=== PATIENT | female | born 1990 | race Caucasian/White ===

== ENCOUNTER 2021-02-27 09:57 | Outpatient (CLI) | payer BC, SELFPAY ==
--- NOTE | 2021-02-27 10:08 | ECG_ITS ---
Measurements Intervals [place] Rate: 70 P: 48 AL: 140 QRS: 72 QRSD: 86 T: 18 QT: 383 QTc: 416 Interpretive Statements SINUS RHYTHM NORMAL ECG Electronically Signed On 02-27-2021 10:25:03 CDT by Jeet Page D.O.
== END 2021-02-27 09:58 | disposition home or self-care (01) ==
PROVIDERS: Visit Provider Student in an Organized Health Care Education/Training Program
DX: R00.2 Palpitations (principal); Z34.82 Encounter for supervision of other normal pregnancy, second trimester; Z3A.00 Weeks of gestation of pregnancy not specified
CPT/HCPCS: 93005

== ENCOUNTER 2021-04-29 15:57 | Outpatient (CLI) | payer BC, SELFPAY ==
[2021-04-29 17:49] LABS: Basophils Percent Auto 0.3 % (0.2-1.2); Eosinophils Absolute Auto 0.1 K/mm3 (0-0.3); Eosinophils Percent Auto 0.7 % (0-4.4); Hemoglobin 10.2 g/dL (12.0-15.0); Immature Granulocyte Absolute 0.09 K/mm3 (0.00-0.031); Immature Granulocyte Percent A 0.8 % (0-0.5); Lymphocytes Absolute Auto 2.19 K/mm3 (0.9-3.2); Lymphocytes Percent Auto 18.6 % (18.3-44.2); Mean Corpuscular HGB Conc 32.9 g/dl (32-36); Mean Corpuscular Hemoglobin 28.6 pg (26-34); Mean Corpuscular Volume 86.8 fl (80-100); Mean Platelet Volume 9.3 fl (7.4-10.4); Monocytes Absolute Auto 0.6 K/mm3 (0.1-0.6); Monocytes Percent Auto 5.4 % (2.6-8.5); Neutrophils Absolute Auto 8.8 K/mm3 (1.3-6.7); Neutrophils Percent Auto 74.2 % (45.5-73.1); Platelet Count Result 333 k/mm3 (150-375); Red Blood Count 3.57 M/mm3 (4.2-5.4); Red Cell Distribution Width 13.2 % (11.5-14.5); White Blood Count 11.8 K/mm3 (4.5-10.0)
[2021-04-29 18:24] LABS: Glucose 1 Hour PP 50gm Dose 87 mg/dL
== END 2021-04-29 15:58 | disposition home or self-care (01) ==
LOC: ANHLAB 15:59
PROVIDERS: Visit Provider Student in an Organized Health Care Education/Training Program
DX: Z34.90 Encounter for supervision of normal pregnancy, unspecified, unspecified trimester (principal); Z3A.00 Weeks of gestation of pregnancy not specified
CPT/HCPCS: 36415; 82947; 85025

== ENCOUNTER 2021-06-03 14:18 | Outpatient (CLI) | payer BC, SELFPAY ==
[2021-06-03 15:01] LABS: Basophils Absolute Auto 0.1 K/mm3 (0.0-0.1); Basophils Percent Auto 0.4 % (0.2-1.2); Eosinophils Absolute Auto 0.1 K/mm3 (0-0.3); Eosinophils Percent Auto 0.7 % (0-4.4); Hematocrit 32.8 % (37.0-47.0); Hemoglobin 10.8 g/dL (12.0-15.0); Immature Granulocyte Absolute 0.27 K/mm3 (0.00-0.031); Lymphocytes Absolute Auto 2.66 K/mm3 (0.9-3.2); Lymphocytes Percent Auto 19.3 % (18.3-44.2); Mean Corpuscular HGB Conc 32.9 g/dl (32-36); Mean Corpuscular Hemoglobin 28.3 pg (26-34); Mean Corpuscular Volume 86.1 fl (80-100); Mean Platelet Volume 9.7 fl (7.4-10.4); Monocytes Absolute Auto 0.8 K/mm3 (0.1-0.6); Monocytes Percent Auto 5.9 % (2.6-8.5); Neutrophils Absolute Auto 9.9 K/mm3 (1.3-6.7); Neutrophils Percent Auto 71.7 % (45.5-73.1); Platelet Count Result 339 k/mm3 (150-375); Red Blood Count 3.81 M/mm3 (4.2-5.4); Red Cell Distribution Width 14.6 % (11.5-14.5); White Blood Count 13.8 K/mm3 (4.5-10.0)
[2021-06-03 15:55] LABS: HIV 1/2 Ab P24 Ag Result Negative (Negative)
[2021-06-03 16:50] LABS: Rapid Plasma Reagin Non-Reactive (NonReactive)
== END 2021-06-03 14:19 | disposition home or self-care (01) ==
PROVIDERS: Visit Provider Student in an Organized Health Care Education/Training Program
DX: Z34.83 Encounter for supervision of other normal pregnancy, third trimester (principal); Z3A.00 Weeks of gestation of pregnancy not specified
CPT/HCPCS: 36415; 85025; 86592; 86703; G0432

== ENCOUNTER 2021-06-30 10:05 | Outpatient (RCR) | payer BC, SELFPAY ==
[2021-06-19 14:25] VITALS: BP 112/72; PULSE 85
--- NOTE | ~2021-06-30 | US_ITS ---
EXAMINATION: US OB limited EXAM DATE: 06/30/2021 11:29 INDICATION: Variable decelerations/MATT. 3rd trimester. TECHNIQUE: Pelvic obstetrical transabdominal sonogram was performed by a technologist. There are mu ltiple grayscale and Doppler images available for interpretation. There are no earlier studies of th is gestation for comparison. FINDINGS: There is a single fetus identified in vertex presentation with a heart rate of 145 beats pe r minute. The placenta is located in the fundal position. There is no sonographic evidence of retrop lacental hemorrhage identified. The amniotic fluid index is 13.2 centimeters, which is normal. IMPRESSION: 1. Single fetus in vertex presentation with heart rate 145 beats per minute. 2. Normal MATT 13.2 cm. Reviewed, dictated and finalized at location B. AT [facility] A DRIVER
[2021-06-30 11:30] VITALS: BP 117/65; PULSE 94
== END 2021-09-08 09:02 | disposition home or self-care (01) ==
LOC: ANHOBOP 10:05
PROVIDERS: Visit Provider Student in an Organized Health Care Education/Training Program
DX: O36.8330 Maternal care for abnormalities of the fetal heart rate or rhythm, third trimester, not applicable or unspecified (principal); Z3A.37 37 weeks gestation of pregnancy; Z3A.39 39 weeks gestation of pregnancy
CPT/HCPCS: 59025; 76815

== ENCOUNTER 2021-07-03 10:35 | Inpatient (IN) | payer BC, SELFPAY ==
[2021-07-03] VITALS (87 sets, daily range): BP systolic 83–130; BP diastolic 34–91; PULSE 73–149; RESP 16; TEMP 36.6–37; O2SAT 93–100; BMI 32.0
[2021-07-03] MEDS: AMPICILLIN 2 GM/NS 100 ML 2 GM/100 ML BAG IVPB (11:44)
[2021-07-03] MEDS: LACTATED RINGERS 1,000 ML 125 ML IV CONT (11:44)
[2021-07-03 11:45] LABS: Basophils Percent Auto 0.2 % (0.2-1.2); Eosinophils Absolute Auto 0.2 K/mm3 (0-0.3); Eosinophils Percent Auto 1.1 % (0-4.4); Hematocrit 31.1 % (37.0-47.0); Hemoglobin 10.2 g/dL (12.0-15.0); Immature Granulocyte Absolute 0.19 K/mm3 (0.00-0.031); Immature Granulocyte Percent A 1.4 % (0-0.5); Lymphocytes Percent Auto 20.8 % (18.3-44.2); Mean Corpuscular HGB Conc 32.8 g/dl (32-36); Mean Corpuscular Hemoglobin 27.9 pg (26-34); Mean Platelet Volume 9.8 fl (7.4-10.4); Monocytes Absolute Auto 0.8 K/mm3 (0.1-0.6); Monocytes Percent Auto 5.5 % (2.6-8.5); Neutrophils Absolute Auto 9.9 K/mm3 (1.3-6.7); Platelet Count Result 341 k/mm3 (150-375); Red Blood Count 3.66 M/mm3 (4.2-5.4); Red Cell Distribution Width 14.7 % (11.5-14.5); White Blood Count 13.9 K/mm3 (4.5-10.0)
[2021-07-03 13:26] LABS: Rubella IgG Antibody 27.2 IU/ML
--- NOTE | 2021-07-03 14:11 | WPDANESEPP ---
Anes - Eval Pre Procedure Procedure: labor epidural Date/Time: 07/03/21 14:11 Surgeon: jamilah Preop Diagnosis: pain during labor Pre Op Diagnosis: iol Patient Data Age: 30 Gender: F Height: 1.68 m Weight: 90 kg Last Vital Signs Pulse 89 07/03/21 12:01 BP 109/73 07/03/21 12:01 Allergies Allergy/AdvReac Type Severity Reaction Status Date / Time No Known Allergies Allergy Verified 07/03/21 10:04 Home Medications Medication Instructions Recorded Confirmed Type ferrous sulfate 325 mg (65 mg 325 mg PO DAILY #90 tablet 05/01/21 07/03/21 Rx iron) tablet PNV cmb#95-ferrous fumarate-FA 1 tablet PO DAILY 07/03/21 07/03/21 History [] Laboratory Tests 07/03/21 07/03/21 07/03/21 11:36 11:36 11:36 WBC 13.9 K/mm3 H K/mm3 (4.5-10.0) RBC 3.66 M/mm3 L M/mm3 (4.2-5.4) Hgb 10.2 g/dL L g/dL (12.0-15.0) Hct 31.1 % L % (37.0-47.0) MCV 85.0 fl fl (80-100) MCH 27.9 pg pg (26-34) MCHC 32.8 g/dl g/dl (32-36) RDW 14.7 % H % (11.5-14.5) Plt Count 341 k/mm3 k/mm3 (150-375) MPV 9.8 fl fl (7.4-10.4) Immature Gran % (Auto) 1.4 % H % (0-0.5) Neut % (Auto) 71.0 % % (45.5-73.1) Lymph % (Auto) 20.8 % % (18.3-44.2) [place] % (Auto) 5.5 % % (2.6-8.5) Eos % (Auto) 1.1 % % (0-4.4) Baso % (Auto) 0.2 % % (0.2-1.2) Lymph # (Auto) 2.90 K/mm3 K/mm3 (0.9-3.2) [place] # (Auto) 0.8 K/mm3 H K/mm3 (0.1-0.6) Eos # (Auto) 0.2 K/mm3 K/mm3 (0-0.3) Baso # (Auto) 0.0 K/mm3 K/mm3 (0.0-0.1) Abs Immat Gran (auto) 0.19 K/mm3 H K/mm3 (0.00-0.031) Absolute Neuts (auto) 9.9 K/mm3 H K/mm3 (1.3-6.7) Absolute Nucleated RBC 0.0 K/mm3 K/mm3 (0.0-0.012) Nucleated RBC % 0.0 % % (0.0-0.2) RPR Pending Rubella IgG Antibody Blood Type A Positive Antibody Screen Negative 07/03/21 11:36 WBC RBC Hgb Hct MCV MCH MCHC RDW Plt Count MPV Immature Gran % (Auto) Neut % (Auto) Lymph % (Auto) [place] % (Auto) Eos % (Auto) Baso % (Auto) Lymph # (Auto) [place] # (Auto) Eos # (Auto) Baso # (Auto) Abs Immat Gran (auto) Absolute Neuts (auto) Absolute Nucleated RBC Nucleated RBC % RPR Rubella IgG Antibody 27.2 IU/ML IU/ML (10 - ) Blood Type Antibody Screen Patient hx anesthesia problems: none Family hx anesthesia problems: none Results Review: All pre-operative results and documents have been reviewed as part of the pre-operative evaluation. [facility] Past Medical History Medical History Heart palpitations Missed x1 Mitral valve prolapse Vaginal delivery x 3 Social History Social History Smoking status: Never smoker Second hand tobacco smoke exposure: No Alcohol intake: never Substance use: never Spiritual care concerns: No Exam Day of Procedure 07/03/21 14:11
[2021-07-03] MEDS: AMPICILLIN 1 GM/NS 50 ML 1 GM/50 ML BAG IVPB (15:48)
--- NOTE | 2021-07-03 16:42 | PM.IMHP ---
H&P: HPI History of Present Illness Date/Time: 07/03/21 16:42 Patient is a . LMP 09/27/20. She is currently 39w6d with MARY 07/04/21 dated by LMP consistent with outside US on 11/15/20 at 7w gestation. Patient presents to L&D in early labor. Reported onset of contractions this morning at approximately 7:45 a.m. States that contractions were occurring approximately every 8 minutes. Patient presented for routine visit this morning and was noted to be 3 cm dilated. She was sent to L&D for further evaluation and made cervical change to 4 cm. Denies any vaginal bleeding or leakage of fluid. Reports good movement. Chief Complaint: Intrauterine at 39w6d Labor GBS positive Review of Systems Review of Systems: All systems reviewed & are unremarkable except as noted in HPI and below Constitutional: Constitutional: Reports as per HPI, Reports no additional constitutional complaints, Denies chills, Denies fever(s), Denies headache(s) and Denies night sweats Eyes: Eyes: Reports as per HPI and Reports no additional eye complaints ENT: Reports system reviewed and no additional complaints, except as documented, Reports as per HPI, Reports Normal hearing present and Denies headache(s) Cardiovascular: Cardiovascular: Reports as per HPI, Reports no additional cardiovascular complaints, Denies chest pain and Denies dyspnea Respiratory: Respiratory: Reports as per HPI, Reports no additional respiratory complaints, Denies cough and Denies dyspnea Gastrointestinal: Gastrointestinal: Reports as per HPI, Reports no additional gastrointestinal complaints, Denies abdominal pain, Denies change in bowel habits, Denies change in stool character, Denies nausea and Denies vomiting Genitourinary: Genitourinary: Reports no additional female genitourinary complaints, Reports as per HPI, Denies abnormal vaginal bleeding, Denies genital lesions, Denies hot flashes, Denies dyspareunia, Denies pelvic pain, Denies sexual dysfunction, Denies urinary incontinence, Denies vaginal discharge, Denies vaginal dryness and Denies vaginal odor Musculoskeletal: Musculoskeletal: Reports no additional musculoskeletal complaints and Reports as per HPI Integumentary/Breasts: Skin/Breast: Reports system reviewed and no additional complaints, except as docu, Reports as per HPI, Denies breast pain and Denies nipple discharge Neurologic: Reports system reviewed and no additional complaints, except as documented, Reports as per HPI, Reports Normal hearing present and Denies headache(s) Psychiatric: Psychiatric: Reports no additional psychiatric complaints, Reports as per HPI, Denies anxiety and Denies depression Endocrine: Endocrine: Reports no additional endocrine complaints and Reports as per HPI Hematologic/Lymphatic: Hematologic/Lymphatic: Reports no additional hematologic/lymphatic complaints and Reports as per HPI Allergic/Immunologic: Allergic/Immunologic: Reports no additional allergic/immunologic complaints and Reports as per HPI PMFSH Past Medical History Medical History Heart palpitations Missed x1 Mitral valve prolapse Vaginal delivery x 3 Social History Social History Smoking status: Never smoker Second hand tobacco smoke exposure: No Alcohol intake: never Substance use: never Spiritual care concerns: No Meds Home Medications and Allergies Home Medications Medication Instructions Recorded Confirmed Type ferrous sulfate 325 mg (65 mg 325 mg PO DAILY #90 tablet 05/01/21 07/03/21 Rx iron) tablet [facility]#95-ferrous fumarate-FA 1 tablet PO DAILY 07/03/21 07/03/21 History [] Allergies Allergy/AdvReac Type Severity Reaction Status Date / Time No Known Allergies Allergy Verified 07/03/21 10:04 Vital Signs Vital Signs - 24 hr 07/03/21 11:38 07/03/21 12:01 07/03/21 14:38 Temperature 36.8
[2021-07-03] MEDS: LACTATED RINGERS 1,000 ML 999 ML IV CONT (16:46)
--- NOTE | 2021-07-03 16:50 | WPDHPUPDATE1 ---
History and Physical Update Update Date/Time: 07/03/21 16:50 History and Physical has been reviewed, including an updated exam of the patient. There are NO changes in the patient's condition. Risks, benefits, and alternatives have been discussed and questions answered. Patient agrees to proceed with procedure.
[2021-07-03] MEDS: OXYTOCIN 30 UNITS/NS 500 ML 30 UNITS/500 ML BAG IV CONT (18:25)
--- NOTE | 2021-07-03 19:58 | PM.OBPRVD ---
OB - Delivery Note Procedure Delivery date: 07/03/21 Procedure: The patient is a 30-year-old now who presented to labor and delivery on the morning of 07/03/2021 at 39 weeks 6 days gestation in early labor. Initial cervical exam was approximately 3 cm dilated. Patient was GBS positive and antibiotics were started for GBS prophylaxis. Patient was observed during which time she made cervical change to 4 cm. After few hours, artificial rupture membranes was performed. Clear amniotic fluid was noted. patient allowed to progress on her own. Patient became uncomfortable and requested epidural for pain management which was placed without difficulty. Patient made minimal further cervical change and Pitocin was started for labor augmentation. Patient began to progress and make cervical change. Patient was noted to be fully dilated at 7:20 p.m. The patient was prepped and draped for delivery. At 7:42 p.m., patient delivered infant head atraumatically and without difficulty in SAE presentation. Occiput restituted to maternal left side. With subsequent push, the infant's neck, shoulders, and rest of body delivered without difficulty. Infant was crying spontaneously. 's nose and mouth were suctioned with bulb suction. was placed on maternal abdomen where care was assumed by awaiting nursing staff. Delayed cord clamping was performed for approximately 60 seconds. Cord was clamped and cut. A segment of cord was collected for cord gases. Cord blood was collected. The placenta was delivered spontaneously and intact. Uterine fundus was firm with massage. On inspection, a first-degree perineal laceration was noted. This laceration was repaired with 3-0 Vicryl in the usual fashion. Excellent hemostasis was noted. Estimated blood loss for entire delivery was 150 cc. was a liveborn female infant, Apgars 9 and 9, weighing 9 lbs. Both mother and baby doing well at end of delivery. Events: Positive Group B Strep (GBS) Delivery augmentation: Rupture of Membranes and Pitocin Delivery monitor: External FHT and External Uterine Route of delivery: Laceration Description: Perineal - 1st Degree Delivery repair: vicryl (3-0) Specimen: Yes (cord blood and cord gases) Quantitative Blood Loss (ml): 150 Anesthesia type: Epidural Disposition: Floor Complications: No immediate complications [place] Baby Date of : 07/03/21 Time of : 19:42 Weeks of gestation at delivery: 39 (39.6) gender: Female Weight (pounds): 9 Weight (ounces): 0 presentation: vertex position: Left Occiput Anterior Placenta delivery description: Spontaneous Cord Vessel Description: 3 Vessels and Delayed Cord Clamping (x60 s) score one minute: 9 score five minutes: 9 AMG Delivery Billing Delivery Delivery: Delivery Charge
[2021-07-03] MEDS: OXYTOCIN 30 UNITS/NS 500 ML 30 UNITS/500 ML BAG 125 UNITS IV CONT (21:19)
[2021-07-03] MEDS: IBUPROFEN 600 MG TABLET PO (21:34)
--- NOTE | 2021-07-03 23:10 | OBPPTRN ---
Patient transferred to post room #290 via wheelchair. Support person present. Oriented to unit, room, information board, rooming in, admission packet and security measures. Patient verbalizes understanding.
[2021-07-04 03:46] VITALS: BP 105/60; PULSE 82; RESP 16; TEMP 36.7; O2SAT 96
[2021-07-04 04:02] LABS: Hematocrit 37.8 % (37.0-47.0); Hemoglobin 11.2 g/dL (12.0-15.0)
[2021-07-04] MEDS: ACETAMINOPHEN 325 MG TABLET 650 MG PO (04:09)
[2021-07-04] MEDS: IBUPROFEN 600 MG TABLET PO ×3 (08:00→23:18)
--- NOTE | 2021-07-04 08:00 | P.PNOB_ITS ---
OB - PN: Subj Subjective Date/time seen: 07/04/21 08:00 Patient doing well. Reports mild-moderate cramping. Well controlled with medication. Minimal lochia. Ambulating without difficulty. OB - PN: Obj Data Labs CBC & Chem 7: 07/04/21 03:53 Labs: Laboratory Results - last 24 hr 07/04/21 03:53 Hgb 11.2 L Hct 37.8 OB - PN A/P Assessment and Plan (1) Normal spontaneous vaginal delivery: Code(s): O80 - Encounter for full-term uncomplicated delivery Status: Acute Assessment and Plan: PPD#1 doing well continue routine care anticipate dc home tomorrow Time Spent With Patient Time: Total time spent is greater than 50% in coordination of care (as d ocumented) at patient's floor/unit and/or counseling patient: Exam Const: General: cooperative, healthy appearing, comfortable and no acute distress GI: Inspection: non-distended GI Palp: Yes Soft to palpation and No Tenderness to palpation present (GI) Other: fundus firm below umbilicus Extrem: Right lower extremity: no edema Left lower extremity: no edema Other: no calf tenderness
[2021-07-04 08:40] VITALS: BP 109/67; PULSE 80; RESP 16; TEMP 36.2; O2SAT 98
[2021-07-04 12:01] VITALS: BP 107/57; PULSE 69; RESP 16; TEMP 36.5; O2SAT 98
[2021-07-04 16:25] VITALS: BP 107/60; PULSE 73; RESP 16; TEMP 36.6
[2021-07-04 20:29] VITALS: BP 136/80; PULSE 72; RESP 18; TEMP 36.1; O2SAT 100
[2021-07-05 08:59] VITALS: BP 120/74; PULSE 74; RESP 16; TEMP 36.6
--- NOTE | 2021-07-05 09:00 | PC.NURSE ---
Patient received instruction on viewing the discharge video Mother & Baby Care, The First Two Weeks . Patient was given the opportunity and encouraged to ask questions. Patient verbalized understanding of information shared and has been given the mother/baby guide for home reference.
[2021-07-05] MEDS: IBUPROFEN 600 MG TABLET PO (09:15)
--- NOTE | 2021-07-05 09:22 | PM.OBPNVD ---
OB - PN: Subj Subjective Date/time seen: 07/05/21 09:22 Patient comments: no complaints, pain well controlled and other (Lochia similar to menses) [place] baby status: doing well OB - PN: Obj Data Labs CBC & Chem 7: 07/04/21 03:53 OB - PN A/P Plan day: 2 (s/p vaginal delivery, doing well) Plan: routine care, discharge home and other (Follow up in office in 4 weeks) Time Spent With Patient Time: Total time spent is greater than 50% in coordination of care (as documented) at patient's floor/unit and/or counseling patient: Exam Const: General: no acute distress GI: Inspection: other (Fundus firm and nontender below umbilicus) GI Palp: Yes Soft to palpation and No Tenderness to palpation present (GI) Extrem: General: no edema
--- NOTE | 2021-07-05 09:23 | PM.OBDSVD ---
DS: Admitting Diagnosis Discharge Date 07/05/2021 Admitting Diagnosis Full term labor DS: Discharge Diagnosis Discharge Diagnosis (1) Normal spontaneous vaginal delivery: Code(s): O80 - Encounter for full-term uncomplicated delivery Status: Acute OB - DS: Summary OB Procedures : None OB Procedures Intrapartum: Spontaneous Vag Delivery OB Procedures: : None Peripartum Data Infant Delivery Method: Natural Vaginal Laceration Description: Perineal - 1st Degree complications: none Status at Discharge Functional status at discharge: independent ambulation Overall status at discharge: patient is progressing back to baseline Time Spent with Patient Time attestation: Total time spent providing and/or coordinating discharge services: Time spent: Less than 30 minutes Discharge Plan Discharge Attending physician on discharge: Mayda Rapp Discharging Clinician: Charis Castro Patient Disposition: Home, Self-Care Activity: may shower and pelvic rest Diet: as tolerated Patient Instructions: Antibiotic Form Stand Alone Forms: General Discharge Information Follow-up/Referrals: Mayda Rapp MD [Physician] - 6 Weeks Discharge Medications: New ibuprofen 600 mg Tablet 600 mg PO Q6H PRN (Reason: Cramping) Qty: 60 RF: 0 Continued PNV cmb#95-ferrous fumarate-FA [] 28 mg iron- 800 mcg Tablet 1 tablet PO DAILY RF: 0 ferrous sulfate 325 mg (65 mg iron) tablet 325 mg PO DAILY Qty: 90 RF: 0 Date of admission: 07/03/21 10:35 Admitting Provider: Mayda Rapp Attending physician on admission: Mayda Rapp Condition: Stable
[2021-07-06 10:46] LABS: Rapid Plasma Reagin Non-Reactive (NonReactive)
[2021-07-07 10:27] VITALS: BP 127/88; PULSE 78; RESP 20; TEMP 36.8; O2SAT 100
== END 2021-07-05 13:30 | disposition home or self-care (01) | DRG 807 ==
LOC: ANHOB2 07-05 12:35 → ANHLDR 07-08 09:27 → ANHOB2 07-08 09:27
PROVIDERS: Admitting Provider Student in an Organized Health Care Education/Training Program; Visit Provider Obstetrics & Gynecology
DX: O99.824 Streptococcus B carrier state complicating childbirth (principal); Z37.0 Single live birth; Z3A.39 39 weeks gestation of pregnancy; O70.0 First degree perineal laceration during delivery
CPT/HCPCS: 36415; 85014; 85018; 85025; 86592; 86762; 86850; 86900; 86901; A9270; J0290; J2590; J2795; J7120